=== PATIENT | male | born 1925 | race Caucasian/White ===

== ENCOUNTER 2016-05-11 17:01 | Emergency (ER) | payer MEDICARE, BC ==
[2016-05-11] MEDS ORDERED: LIDOCAINE VISCOUS 2% 15 ML UDC ONE (17:36)
[2016-05-11] MEDS ORDERED: MAG-AL PLUS XS SUSP 30 ML UDC ONE (17:36)
[2016-05-11] MEDS ORDERED: SIMETHICONE CHEW 80 MG TABLET PO ONE (18:02)
--- NOTE | 2016-05-11 18:40 | ER PHYSICIAN DOCUMENTATION ---
Physician Documentation [facility] Name:Maikel Redmond Age:89 yrs Sex:Male :1925 Arrival Date:05/11/2016 Time:17:01 Bed1 Private MD:Ricky Bateman ED, Scott Disposition: 05/11/16 18:33 Discharged to Home/Self Care. Impression: Abdominal Pain, Epigastric. - Condition is Good. - Discharge Instructions: ABDOMINAL PAIN, Unkown Cause, (Male). - Medical Reconciliation form form. - Follow up: Ricky Bateman MD; When: As needed; Reason: If symptoms return. - Problem is an acute exacerbation. - Symptoms are resolved. HPI: 05/11 18:18 This 89 yrs old Male presents to ER via Private Vehicle with complaints of sc Abdominal Pain. 18:18 The patient presents with abdominal pain in the epigastric area. Onset: The sc symptoms/episode began/occurred just prior to arrival. The symptoms do not radiate. Associated signs and symptoms: Pertinent positives: felt something burst in abdomen when he coughed while eating ice cream, Pertinent negatives: anorexia, blood in stools, chest pain, constipation, diarrhea, dysuria, fever, nausea, shortness of breath, vomiting. The symptoms are described as achy. Modifying factors: the symptoms are aggravated by coughing. Severity of pain: At its worst the pain was mild 3/10. Risk factors for CAD: known CAD. The patient has not experienced similar symptoms in the past. Historical: - Allergies: Codeine; Hydrochlorothiazide; Diuretic; Codeine; Hydrochlorothiazide; - Home Meds: 1. aspirin Oral 2. Spironalactone 3. carvedilol oral 4. 02 5. Astepro 6. Digoxin 7. Vit b12 8. Protonix Oral 9. amlodipine oral 10. Synthroid Oral 11. Advair Diskus Inhl 12. Lasix Oral 13. Warfarin Oral 14. Imatropium 15. 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 - Ebola Screening: : No symptoms or risks identified at this time. . - Social history: Smoking status: Patient states was never smoker of tobacco. - Immunization history: Flu Vaccine < 1 year. ROS: 18:21 Constitutional: Negative for fever, chills, and weight loss. sc Eyes: Negative for injury, pain, redness, and discharge. ENT: Negative for injury, pain, and discharge. Neck: Negative for injury, pain, and swelling. Cardiovascular: Negative for chest pain, palpitations, and edema. Respiratory: Negative for shortness of breath, cough, wheezing, and pleuritic chest pain. Back: Negative for injury and pain. MS/Extremity: Negative for injury and deformity. Skin: Negative for injury, rash, and discoloration. 18:21 Neuro: Negative for headache, weakness, numbness, tingling, and seizure. sc 18:21 Abdomen/GI: Positive for abdominal pain, Negative for nausea, vomiting, diarrhea, constipation, abdominal cramps, abdominal distension, anorexia. Exam: Constitutional: This is a well developed, well nourished patient who is awake, alert, and in no acute distress. Head/Face: Normocephalic, atraumatic. Eyes: Pupils equal round and reactive to light, extra-ocular motions intact. Lids and lashes normal. Conjunctiva and sclera are non-icteric and not injected. Cornea within normal limits. Periorbital areas with no swelling, redness, or edema. Neck: Trachea midline, no thyromegaly or masses palpated, and no cervical lymphadenopathy. Supple, full range of motion without nuchal rigidity, or vertebral point tenderness. No meningismus. Chest/axilla: Normal chest wall appearance and motion. Nontender with no deformity. No lesions are appreciated. Cardiovascular: Regular rate and rhythm with a normal S1 and S2. No gallops, murmurs, or rubs. Normal PMI, no JVD. No pulse deficits. Respiratory: Lungs have equal breath sounds bilaterally, clear to auscultation and percussion. No rales, rhonchi or wheezes noted. No increased work of breathing, no retractions or nasal flaring. Abdomen/GI: Soft, non-tender, with normal bowel sounds. No distension or tympany. No guarding or rebound. No evidence of tenderness throughout. Back: No spinal tenderness. No costovertebral tenderness. Full range of motion. 18:21 Skin: Warm, dry with normal turgor. Normal color with no rashes, no lesions, and no sd evidence of cellulitis. 18:34 Abdomen/GI: Palpation: abdomen is soft and non-tender, rebound tenderness, is not sc appreciated, no appreciated organomegaly. Vital Signs: 17:05 BP 169 / 70; Pulse 71; Resp 20 S; Temp 97.6; Pulse Ox 92% ; Weight 62.14 kg; Height 5 ma ft. 2 in. (157.48 cm) (R); Pain 3/10; 17:05 Body Mass Index 25.06 (62.14 kg, 157.48 cm) ma MDM: 17:36 Patient medically screened. sd 18:22 Differential diagnosis: bowel obstruction, gastritis, gastroesophageal reflux disease, sc non-specific abd pain, Perf. Gastric Ulcer. Data reviewed: vital signs, nurses notes, radiologic studies, plain films. Data reviewed: and as a result, I will continue to observe the patient. Counseling: I had a detailed discussion with the patient and/or guardian regarding: the historical points, exam findings, and any diagnostic results supporting the discharge/admit diagnosis, radiology results, the need for outpatient follow up, to return to the emergency department if symptoms worsen or persist or if there are any questions or concerns that arise at home. Medication response: The patient's symptoms have improved. Dispensed Medications: 17:29 Drug: GI Cocktail w/o Donnatol - (Maalox Suspension 30 ml, Lidocaine Liquid 2 % 15 ml); ma Route: PO; 18:28 Follow up: Response: No adverse reaction; Pain is decreased ma 18:15 Drug: Simethicone 80 mg; Route: PO; ma 18:39 Follow up: Response: Nausea is decreased; States pain is completely gone ma Signatures: Meryl Chappell RN RN ma Chew, Scott, MD MD sd
--- NOTE | 2016-05-11 18:40 | ER NURSING DOCUMENTATION ---
Nurse's Notes 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 Transition of care: Home. 17:29 Method Of Arrival: Private Vehicle ma Triage Assessment: 17:45 General: Appears in no apparent distress, Behavior is cooperative. Pain:. GI: Abdomen ma is flat, Bowel sounds present X 4 quads. Abd is soft and non tender X 4 quads. Historical: - Allergies: Codeine; Hydrochlorothiazide; Diuretic; Codeine; Hydrochlorothiazide; - Home Meds: 1. aspirin Oral 2. Spironalactone 3. carvedilol oral 4. 02 5. Astepro 6. Digoxin 7. Vit b12 8. Protonix Oral 9. amlodipine oral 10. Synthroid Oral 11. Advair Diskus Inhl 12. Lasix Oral 13. Warfarin Oral 14. Imatropium 15. 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 - Ebola Screening: : No symptoms or risks identified at this time. . - Social history: Smoking status: Patient states was never smoker of tobacco. - Immunization history: Flu Vaccine < 1 year. Screenin:48 Infectious Disease Risk None. Abuse screen: Denies threats or abuse. Nutritional ma screening: No deficits noted. Assessment: 17:48 Respiratory: Breath sounds with wheezes bilaterally. Pt with recent diagnosis of ma bronchitis, on abx and prednisone. Vital Signs: 17:05 BP 169 / 70; Pulse 71; Resp 20 S; Temp 97.6; Pulse Ox 92% ; Weight 62.14 kg; Height 5 ma ft. 2 in. (157.48 cm) (R); Pain 3/10; 17:05 Body Mass Index 25.06 (62.14 kg, 157.48 cm) nm ED Course: 17:01 Patient arrived in ED. ds 17:01 Ricky Bateman MD is Private Physician. ds 17:19 Meryl Chappell, RN is Primary Nurse. ma 17:19 Triage completed. ma 17:29 Patient moved to radiology. tt 17:36 Omega Mcnulty MD is Attending Physician. id 17:48 Valuables Given to family. Patient has correct armband on for positive identification. ma Placed in gown. Bed in low position. Call light in reach. Side rails up X2. Adult w/ patient. Pulse Ox - RN Monitoring Only NIBP On - RN Monitoring Only. 17:49 Patient moved back from radiology. tt 18:32 Ricky Bateman MD is Referral Physician. sc Administered Medications: 17:29 Drug: GI Cocktail w/o Donnatol - (Maalox Suspension 30 ml, Lidocaine Liquid 2 % 15 ml); ma Route: PO; 18:28 Follow up: Response: No adverse reaction; Pain is decreased ma 18:15 Drug: Simethicone 80 mg; Route: PO; ma 18:39 Follow up: Response: Nausea is decreased; States pain is completely gone ma Intake: Outcome: 18:33 Discharge ordered by . id 18:38 Discharged to home nm 18:38 Condition: stable 18:38 Discharge instructions given to patient, Instructed on discharge instructions, follow up and referral plans. Demonstrated understanding of instructions. 18:39 Patient left the ED. nm 05/12 14:51 Discharge F/U Call: Spoke with: patient. Are you having any pain? no. What is the one lp thing you feel we could do to improve? Patient's answer: Much better Signatures: Meryl Chappell, RN Jeanne Olivier ma, RN RN lp Srot, Sosa, Reg Reg Omega Mcnulty MD MD sc Terriere, Tracy tt
--- NOTE | 2016-05-12 08:26 | RADIOLOGY REPORT ---
A single view of the chest is compared with prior film dated 04/25/2012. There has been interval sternal splitting thoracotomy. The heart and vessels are unremarkable. The lung guy are clear. No infiltrate, fluid or pneumothorax is seen. Views of the abdomen demonstrate moderate gaseous distention of the stomach. The bowel gas pattern is unremarkable. No pathologic calcifications or free air are identified. IMPRESSION: 1. Interval post surgical change of the chest. 2. Moderate gastric gaseous distention. MTDD
== END 2016-05-11 18:40 | disposition home or self-care (01) ==
LOC: ER 17:01
DX: R10.13 Epigastric pain (principal); R14.0 Abdominal distension (gaseous); I10 Essential (primary) hypertension; I25.10 Atherosclerotic heart disease of native coronary artery without angina pectoris; E11.9 Type 2 diabetes mellitus without complications; I48.91 Unspecified atrial fibrillation; Z79.82 Long term (current) use of aspirin; Z79.899 Other long term (current) drug therapy; Z79.01 Long term (current) use of anticoagulants
CPT/HCPCS: 74022; 99283